=== PATIENT | female | born 1985 | race Caucasian/White ===

== ENCOUNTER → 2016-06-27 | Outpatient (CLI) | payer BC ==
[~2016-06-27] MED LIST: BUTA1CAP39 PO; IBP600T1 PO; OXYC-12 PO; PREN1TAB39 PO
--- OUTSIDE RECORDS SUMMARY | 2016-06-27 11:51 | XMS REPORT | Continuity of Care Document ---
Author Author [facility] Organization [facility] Address Unknown Phone Unavailable Allergies Active Description Code Type Severity Reaction Onset Reported/Identified Relationship to Patient Clinical Status Yes No Known Drug Allergies [id number] Drug Allergy Unknown N/ A 06/13/2008 Medications Problems Date Dx Coded Attending Type Code Diagnosis Diagnosed By 06/11/2010 Ot 649.53 09/08/2011 Ot 659.71 ABN DEL FET HT RT/RHYTHM,W OR W/O MENTIO 09/08/2011 Ot V06.1 [id number], COMBINED [ 09/08/2011 Ot V27.0 DELIVER-SINGLE LIVEBORN 09/29/2014 CALDERON HOWE OD Ot 368.40 09/29/2014 CALDERON HOWE OD Ot 473.9 05/30/2015 ISAIAH WALKER MD Ot F17.210 NICOTINE DEPENDENCE, CIGARETTES, UNCOMPL 05/30/2015 AARON STAPLES, ISAIAH Goel Ot G43.909 MIGRAINE, UNSP, NOT INTRACTABLE, WITHOUT 06/27/2016 CALDERON HOWE OD Ot 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 Visit Date/Time Discharge Status Pt. Type Provider Facility Loc./Unit Complaint [id number] 05/30/2015 21:33:00 2015 22:41:00 DIS Emergency ISAIAH WALKER MD [facility] ER MIGRAINE;NAUSEA [id number] 08/03/2014 14:52:00 2014 23:59:59 CLS Outpatient CALDERON HOWE OD [facility] RAD BITEMPORAL FIELD DEFECT/ PITUITARY TUMOR POSSIBILIT [id number] 12/07/2013 12:53:00 2013 23:59:59 CLS Outpatient [id number] 06/27/2016 11:49:00 ACT Outpatient MIGUEL ELLISON DO [facility] RAD FIRST TRIMESTER BLEEDING [id number] 09/06/2011 01:47:00 Document Registration [id number] 06/11/2010 12:53:00 Document Registration
--- NOTE | 2016-06-27 14:03 | Diagnostic Imaging Report ---
Transvaginal pelvic ultrasound. INDICATION: First trimester bleeding. FINDINGS: The uterus is 8 x 4.2 x 5.3 cm in size. The endometrial stripe is 4 mm in caliber. The ovaries are not seen, perhaps obscured by bowel gas. No discrete myometrial mass is noted. IMPRESSION: No intrauterine is seen. The adnexa are obscured. Differential considerations include early normal , failed or occult ectopic . Correlate with serial beta hCG levels and ultrasound exam. Dictated by: Dictated on workstation # [id number]
== END ==
LOC: RAD 11:49
PROVIDERS: ATTEND Obstetrics & Gynecology
DX: O20.8 Other hemorrhage in early pregnancy (principal)
CPT/HCPCS: 76817

== ENCOUNTER → 2016-07-07 | Outpatient (CLI) | payer BC | LOC: LAB 14:04 | PROVIDERS: ATTEND Obstetrics & Gynecology | DX: O20.9 Hemorrhage in early pregnancy, unspecified (principal) | CPT/HCPCS: 36415; 84702 ==

== ENCOUNTER → 2017-05-25 | Outpatient (CLI) | payer BC ==
--- NOTE | 2017-05-25 18:35 | Diagnostic Imaging Report ---
INDICATION: Size and dates. OB sonography is performed in the routine fashion with transabdominal views. 9 weeks 1 day sized intrauterine gestation is visualized, without cardiac activity. There is no overt subchorionic bleed. There is no free fluid. Gestational sac shows a normal ovoid contour. Left ovary appears unremarkable and contains color flow. The right ovary is not seen due to overlying bowel. IMPRESSION: 9 weeks 1 day sized intrauterine gestation without cardiac activity, compatible with demise. The results were called to the referring physician by the technologist at the time of the study. Dictated by: Dictated on workstation # [id number]
== END ==
LOC: RAD 14:15
PROVIDERS: ATTEND Family Medicine
DX: Z34.81 Encounter for supervision of other normal pregnancy, first trimester (principal); Z3A.09 9 weeks gestation of pregnancy
CPT/HCPCS: 76801

== ENCOUNTER 2019-01-12 03:14 | Inpatient (IN) | payer BC ==
[2019-01-12] VITALS (9 sets, daily range): BP systolic 100–124; BP diastolic 38–105
[~2019-01-12] VITALS: Ht 157.5 cm; Wt 57.4 kg
--- NOTE | 2019-01-12 03:25 | NUR ---
DARIEN PARK presented to unit via wheelchair from ED, accompanied by S.O, with c/o CONTRACTIONS,FLUID LEAKAGE. DARIEN PARK weighed, gowned, voided, and to bed. EFHM and TOCO applied, VS taken. DARIEN PARK oriented to bed controls, call light, TV, heat, and A/C controls.
[2019-01-12 03:54] LABS: CLARITY,URINE CLEAR; COLOR,URINE YELLOW; GLUCOSE, URINE (UA) NEGATIVE (NEGATIVE); KETONES,URINE 1+ (NEGATIVE); LEUKOCYTE ESTERASE ,URINE 2+ (NEGATIVE); NITRITE,URINE NEGATIVE (NEGATIVE); PH,URINE 6.5 (5-9); PROTEIN,URINE 2+ (NEGATIVE); UROBILINOGEN,URINE 8 MG/DL (NORMAL)
[2019-01-12 04:01] LABS: BACTERIA,URINE FEW /HPF; BILIRUBIN,URINE 2+ (NEGATIVE); RBC,URINE 0-2 /HPF; SQUAMOUS EPITHELIAL CELL,UR 0-2 /HPF; WBC,URINE 0-2 /HPF
[2019-01-12] MEDS ORDERED: TERBUTALINE INJ 1 MG/ML (BRETHINE) AMP ONE (04:05)
[2019-01-12] MEDS ORDERED: NS IV 1000 ML 1,000 ML ONE (04:09)
--- NOTE | 2019-01-12 04:11 | NUR ---
Pt advised on POC and terbutaline given per order.
[2019-01-12] MEDS ORDERED: NS IV 1000 ML 1,000 ML IV SCH (04:15)
[2019-01-12] MEDS ORDERED: TERBUTALINE INJ 1 MG/ML (BRETHINE) AMP SC ONE ×2 (04:15→05:45)
[2019-01-12] MEDS ORDERED: LACTATED RINGERS 1,000 ML IV PRN ×2 (05:39)
[2019-01-12] MEDS ORDERED: AMPICILLIN FOR IV USE 2,000 MG VIAL ONE (05:41)
[2019-01-12] MEDS ORDERED: AMPICILLIN FOR IV USE 2,000 MG in WATER (STERILE) FOR INJECTION 14.8 ML IV SCH (05:41)
[2019-01-12] MEDS ORDERED: WATER (STERILE) FOR INJECTION 20 ML ONE (05:42)
[2019-01-12] MEDS ORDERED: FAMOTIDINE 20MG/2ML IV (PEPCID) IV ONE (05:45)
[2019-01-12] MEDS ORDERED: CATHETER FLUSH 10 ML SYR IV PRN (05:45)
[2019-01-12] MEDS ORDERED: METOCLOPRAMIDE INJ 10 MG/2 ML (REGLAN) IV ONE (05:45)
[2019-01-12] MEDS ORDERED: CITRIC ACID/SOB CIT (BICITRA) 30 ML UDC PO ONE (05:45)
[2019-01-12 05:48] LABS: BASOPHILS % (AUTO) 0 % (0-10); EOSINOPHILS # (AUTO) 0.1 10^3/uL (0.0-0.3); EOSINOPHILS % (AUTO) 1 % (0-10); HEMATOCRIT 38 % (35-52); HEMOGLOBIN 12.8 G/DL (11.5-16.0); LYMPHOCYTES # (AUTO) 2.1 X 10^3 (1.0-4.0); LYMPHOCYTES % (AUTO) 11 % (12-44); MEAN CORPUSCULAR HEMOGLOBIN 31 PG (25-34); MEAN CORPUSCULAR HGB CONC 33 G/DL (32-36); MEAN CORPUSCULAR VOLUME 93 FL (80-99); MEAN PLATELET VOLUME 11.6 FL (7.4-10.4); MONOCYTES # (AUTO) 1.2 X 10^3 (0.0-1.0); MONOCYTES % (AUTO) 6 % (0-12); NEUTROPHILS # (AUTO) 15.7 X 10^3 (1.8-7.8); NEUTROPHILS % (AUTO) 82 % (42-75); PLATELET COUNT 359 10^3/uL (130-400); RED CELL DISTRIBUTION WIDTH 13.9 % (10.0-14.5); WHITE BLOOD COUNT 19.1 10^3/uL (4.3-11.0)
[2019-01-12] MEDS ORDERED: METOCLOPRAMIDE INJ 10 MG/2 ML (REGLAN) ONE (05:58)
[2019-01-12] MEDS ORDERED: FAMOTIDINE 20MG/2ML IV (PEPCID) ONE (05:58)
[2019-01-12] MEDS ORDERED: CITRIC ACID/SOB CIT (BICITRA) 30 ML UDC ONE (05:58)
[2019-01-12] MEDS ORDERED: ceFAZolin INJECTION 1,000 MG ONE (06:29)
[2019-01-12] MEDS ORDERED: ceFAZolin INJECTION 1,000 MG in WATER (STERILE) FOR INJECTION 10 ML IV ONE (06:30)
[2019-01-12] MEDS ORDERED: fentaNYL INJECTION 100 MCG/2 ML AMP ONE (06:32)
--- NOTE | 2019-01-12 06:37 | History & Physical-OB ---
OB - Chief Complaint & HPI Date/Time Date of Admission: Date of Admission: Jan 12, 2019 at 05:33 Chief Complaint/History OB-Reason for Admission/Chief: Onset of Labor (Previous section) Hx : 5 Hx Para: 2 Expected Date of Delivery: Feb 06, 2019 Gestational Age in Weeks: 36 Gestational Age in Days: 3 Other She is a with history of x 1 and CS x1. She had intercourse last night and then presented with painful contractions. On exam per RN she was 1 cm. Given a liter of fluid and 1 dose of terbutaline which decreased her contrac tions for a few minutes. Then RN checked her with Allergies and Home Medications Allergies Coded Allergies: No Known Drug Allergies (Verified , 06/13/08) Home Medications Butalb/Acetaminophen/Caffeine 1 Each Capsule, 1 EACH PO Q4H PRN for HEADACHE Prescribed by: ISAIAH WALKER on 05/30/15 2200 Ibuprofen 600 Mg Tab, 600 MG PO Q6H PRN, (Reported) Oxycodone Hcl/Acetaminophen 1 Each Tablet, 1-2 EACH PO Q 4-6H PRN, (Reported) Vits W-Ca,Fe,Fa(<1MG) 1 Each Tablet, 1 EACH PO DAILY, (Reported) OB - History Hx of Present Care: Yes Obstetrical History Hx : 5 Hx Para: 2 Delivery History Hx Blood Disorders: No Social History/Family History HIV/AIDS: No Recent Infectious Disease Expo: No Sexually Transmitted Disease: No Alcohol Use: Occasionally Uses Recreational Drug Use: Yes OB - Admission Exam Physical Exam Vitals: Vital Signs 01/12/19 03:35 Temp 35.8 Pulse 77 Resp 18 B/P (MAP) 124/69 (87) O2 Delivery Room Air Labs Laboratory Tests Test 01/12/19 03:30 01/12/19 04:18 Range/Units Urine Color YELLOW Urine Clarity CLEAR Urine pH 6.5 5-9 Urine Specific [place] 1.025 H 1.016-1.022 Urine Protein 2+ H NEGATIVE Urine Glucose (UA) NEGATIVE NEGATIVE Urine Ketones 1+ H NEGATIVE Urine Nitrite NEGATIVE NEGATIVE Urine Bilirubin 2+ H NEGATIVE Urine Urobilinogen 8 H NORMAL MG/DL Urine Leukocyte Esterase 2+ H NEGATIVE Urine RBC (Auto) 5+ H NEGATIVE Urine RBC 0-2 /HPF Urine WBC 0-2 /HPF Urine Squamous Epithelial Cells 0-2 /HPF Urine Crystals NONE /LPF Urine Bacteria FEW H /HPF Urine Casts NONE /LPF Urine Mucus SMALL H /LPF Urine Culture Indicated CULTURE PENDING White Blood Count 19.1 H 4.3-11.0 10^3/uL Red Blood Count 4.14 L 4.35-5.85 10^6/uL Hemoglobin 12.8 11.5-16.0 G/DL Hematocrit 38 35-52 % Mean Corpuscular Volume 93 80-99 FL Mean Corpuscular Hemoglobin 31 25-34 PG Mean Corpuscular Hemoglobin Concent 33 32-36 G/DL Red Cell Distribution Width 13.9 10.0-14.5 % Platelet Count 359 130-400 10^3/uL Mean Platelet Volume 11.6 H 7.4-10.4 FL Neutrophils (%) (Auto) 82 H 42-75 % Lymphocytes (%) (Auto) 11 L 12-44 % Monocytes (%) (Auto) 6 0-12 % Eosinophils (%) (Auto) 1 0-10 % Basophils (%) (Auto) 0 0-10 % Neutrophils # (Auto) 15.7 H 1.8-7.8 X 10^3 Lymphocytes # (Auto) 2.1 1.0-4.0 X 10^3 Monocytes # (Auto) 1.2 H 0.0-1.0 X 10^3 Eosinophils # (Auto) 0.1 0.0-0.3 10^3/uL Basophils # (Auto) 0.0 0.0-0.1 10^3/uL MIGUEL ELLISON DO Jan 12, 2019 06:37
[2019-01-12] MEDS ORDERED: OXYTOCIN/NORMAL SALINE 1,000 ML IV ONE (07:33)
[2019-01-12] MEDS ORDERED: ONDANSETRON 4 MG/2 ML (SDV) Z0FRAN IV PRN (07:45)
[2019-01-12] MEDS ORDERED: NALOXONE 0.4 MG/ML 1 ML (NARCAN) VIAL IV PRN (07:45)
[2019-01-12] MEDS ORDERED: diphenhydrAMINE 50 MG/ML INJ (BENADRYL) IV PRN (07:45)
[2019-01-12] MEDS ORDERED: BUPIVACAINE 0.5% 30 ML (SENSORCAINE) VIAL ONE (07:48)
[2019-01-12] MEDS ORDERED: PHENYLEPHRINE 100 MCG/ML 10 ML (ANESTHESIA) SYR ONE (07:48)
[2019-01-12] MEDS ORDERED: OXYTOCIN/NORMAL SALINE 500 ML IV SCH (08:05)
[2019-01-12] MEDS ORDERED: morphine INJ 4 MG/ML 1 ML (VIAL/SYRINGE) IVP PRN (08:15)
[2019-01-12] MEDS ORDERED: MEASLES,MUMPS,RUBELLA 1 EA INJ SC SCH (08:15)
[2019-01-12] MEDS ORDERED: TETANUS,DIPTH,PERTUSS P/F (BOOSTRIX) 0.5 ML VIAL IM SCH (08:15)
--- NOTE | 2019-01-12 08:21 | Cesarean Section Operative ---
Procedure Procedure Note Pre-operative Diagnosis: Christine Driscoll is a 33 /Para 5 / 2,Gestational Age 36 3/7 weeks, previous section, labor, GBS unknown Post-operative Diagnosis: same Procedure: Repeat low transverse section Physician: MIGUEL ELLISON Interior Surface Insulation Worker: Reece Lees MD; project assistant necessary to retract important neurovascular structures Estimated blood loss: 400 mL Disposition: stable Findings: Viable female infant, Apgars 4/8, weight 5#8 ounces, intact placenta, 3vc, normal appearing uterus, tubes, and ovaries. polyhydramnios (at least 4 Liters), unstable lie, delivered breech Indications:Christine Driscoll is a 33 /Para 5 / 2,Gestational Age 36 3/7 weeks, previous section, labor, GBS unknown Procedure Details: The patient was seen in pre-op and the procedure was discussed with the patient in full, including the risks, benefits, and alternatives. All questions were answered. The patient was taken to the operating room and a time out was performed, verifying patient and procedure. After spinal anesthesia was placed by our anesthesia colleagues, the patient was placed in the dorsal supine with leftward tilt for uterine displacement.~ Her abdomen was then prepped and draped in the typical sterile fashion. A Pfannenstiel skin incision was made using a scalpel and carried down through the underlying fascia. The fascia was incised in the midline and tented up using Maciej clamps. On both the inferior and superior fascia side the rectus muscle was dissected off bluntly and sharply using Orozco scissors. The peritoneum was identified and entered bluntly in the midline. This was then stretched laterally using manual strength. After entering the abdominal cavity and confirming lack of intraperitoneal adhesions, a large Cabrera retractor was placed and the lower uterine segment was visualized. A bladder flap was created with the use of Metzenbaum scissors.~ A scalpel was utilized to make a low transverse uterine incision. Amniotomy was performed with an Allis clamp with return of clear fluid. The infant's head was grasped and brought to the level of the incision. Fundal pressure was applied and was delivered without difficulty. Mouth and nares were suctioned with bulb suction. After the umbilical cord was clamped and cut, the was handed off to the pediatric staff. A sample of cord blood was then obtained. The placenta was delivered intact via uterine massage. The uterus was exteriorized and cleared of all clots and debris. The uterine incision was closed using 0 Vicryl in a running locked fashion. A second imbricated layer was placed using 0 Vicryl in a running fashion as well. The uterus was flexed forward and the posterior rectouterine space was inspected and cleared of all clots and debris. Again the hysterotomy site was examined and hemostasis was observed. The bilateral tubes and ovaries appeared normal. The uterus was placed back into the abdominal cavity and abdominal gutters were cleared of all clots and debris. A final check of the uterine incision showed it to be hemostatic. The peritoneum was closed using 3-0 Vicryl in a running fashion. The fascia was closed with 0 Vicryl in a running fashion. The subcutaneous space was hemostatic, and irrigated. The subcutaneous space was closed with 3-0 Vicryl in several single interrupted stitches. The skin was then closed using 4-0 Monocryl in a running subcuticular fashion. The skin edges were reapproximated together and were hemostatic. A pressure dressing was applied. All sponge, lap and needle counts were correct at the end of the procedure per nursing. Vitals - Labs Vital Signs - I&O Vital Signs Date Time Temp Pulse Resp B/P (MAP) Pulse Ox O2 Delivery O2 Flow Rate FiO2 01/12/19 06:20 101 18 111/56 (74) Room Air 01/12/19 03:35 35.8 77 18 124/69 (87) Room Air I & O 01/12/19 07:00 Intake Total 2014.8 ml Balance 2014.8 ml Labs Laboratory Tests 01/12/19 03:30: Urine Color YELLOW, Urine Clarity CLEAR, Urine pH 6.5, Urine Specific [place] 1.025H, Urine Protein 2+H, Urine Glucose (UA) NEGATIVE, Urine Ketones 1+H, Urine Nitrite NEGATIVE, Urine Bilirubin 2+H, Urine Urobilinogen 8H, Urine Leukocyte Esterase 2+H, Urine RBC (Auto) 5+H, Urine RBC 0-2, Urine WBC 0-2, Urine Squamous Epithelial Cells 0-2, Urine Crystals NONE, Urine Bacteria FEWH, Urine Casts NONE, Urine Mucus SMALLH, Urine Culture Indicated CULTURE PENDING 01/12/19 04:18: White Blood Count 19.1H, Red Blood Count 4.14L, Hemoglobin 12.8, Hematocrit 38, Mean Corpuscular Volume 93, Mean Corpuscular Hemoglobin 31, Mean Corpuscular Hemoglobin Concent 33, Red Cell Distribution Width 13.9, Platelet Count 359, Mean Platelet Volume 11.6H, Neutrophils (%) (Auto) 82H, Lymphocytes (%) (Auto) 11L, Monocytes (%) (Auto) 6, Eosinophils (%) (Auto) 1, Basophils (%) (Auto) 0, Neutrophils # (Auto) 15.7H, Lymphocytes # (Auto) 2.1, Monocytes # (Auto) 1.2H, Eosinophils # (Auto) 0.1, Basophils # (Auto) 0.0 MIGUEL ELLISON DO Jan 12, 2019 08:21
--- NOTE | 2019-01-12 08:57 | NUR ---
pt transferred to room 313 via bed with nursing staff @ side. pt alert, talking. familiarized with room surroundings. call light within reach.
[2019-01-12] MEDS: CATHETER FLUSH 10 ML SYR IV SCH ×2 (09:12→16:07)
[2019-01-12] MEDS: KETOROLAC 30 MG/ML VIAL IV SCH ×3 (09:12→21:45)
[2019-01-12] MEDS: DOCUSATE SODIUM 100 MG (COLACE) CAP PO SCH ×2 (13:09→21:45)
[2019-01-12] MEDS: METOCLOPRAMIDE 10 MG (REGLAN) TAB PO SCH ×2 (13:10→19:37)
[2019-01-12] MEDS: ACETAMINOPHEN 500 MG TAB (TYLENOL) PO SCH (13:10)
--- NOTE | 2019-01-12 13:15 | NUR ---
caceres catheter dc'd per Dr's orders. 300cc dark urine noted in chamber. gen-care offered. v-pad and panties applied.
[2019-01-13] MEDS: METOCLOPRAMIDE 10 MG (REGLAN) TAB PO SCH ×2 (00:53→06:11)
[2019-01-13] MEDS: ACETAMINOPHEN 500 MG TAB (TYLENOL) PO SCH ×2 (00:53→10:20)
[2019-01-13 02:00] VITALS: BP 114/55
[2019-01-13] MEDS: KETOROLAC 30 MG/ML VIAL IV SCH (04:17)
[2019-01-13] MEDS ORDERED: IBUPROFEN 800 MG (MOTRIN) TAB PO ONE (04:21)
[2019-01-13] MEDS ORDERED: IBUPROFEN 600 MG (MOTRIN) TAB PO ONE (04:23)
[2019-01-13] MEDS: IBUPROFEN 600 MG (MOTRIN) TAB PO SCH ×2 (04:25→10:21)
[2019-01-13] MEDS ORDERED: MILK OF MAGNESIA 400 MG/5 ML 30 ML UDC PO PRN (05:00)
[2019-01-13 06:00] VITALS: BP 109/52
[2019-01-13 06:53] LABS: BASOPHILS % (AUTO) 0 % (0-10); EOSINOPHILS # (AUTO) 0.1 10^3/uL (0.0-0.3); EOSINOPHILS % (AUTO) 1 % (0-10); HEMATOCRIT 34 % (35-52); HEMOGLOBIN 11.3 G/DL (11.5-16.0); LYMPHOCYTES # (AUTO) 1.2 X 10^3 (1.0-4.0); LYMPHOCYTES % (AUTO) 7 % (12-44); MEAN CORPUSCULAR HEMOGLOBIN 31 PG (25-34); MEAN CORPUSCULAR HGB CONC 33 G/DL (32-36); MEAN CORPUSCULAR VOLUME 93 FL (80-99); MEAN PLATELET VOLUME 10.9 FL (7.4-10.4); MONOCYTES # (AUTO) 0.8 X 10^3 (0.0-1.0); MONOCYTES % (AUTO) 5 % (0-12); NEUTROPHILS # (AUTO) 14.4 X 10^3 (1.8-7.8); NEUTROPHILS % (AUTO) 87 % (42-75); PLATELET COUNT 315 10^3/uL (130-400); RED CELL DISTRIBUTION WIDTH 14.1 % (10.0-14.5); WHITE BLOOD COUNT 16.6 10^3/uL (4.3-11.0)
[2019-01-13 08:00] VITALS: BP 100/64
--- NOTE | 2019-01-13 08:00 | NUR ---
PT HAS AMBULATED DOWNSTAIRS FREQUENTLY WITH S.O. VSS. DOING WELL. ANXIOUS TO GO SEE INFANT IN JOIN.
--- NOTE | 2019-01-13 08:47 | Anesthesia-Regional Post-Op ---
Regional Patient Condition Mental Status: Alert, Oriented x3 Circulation: Same as Pre-Op Headache: Absent Sensation: Full Recovery Motor Block: Absent Post Op Complications Complications None Follow Up Care/Instructions Patient Instructions None needed. Anesthesia/Patient Condition Patient is doing well, no complaints, stable vital signs, no apparent adverse anesthesia problems. No complications reported per nursing. GAY QUISPE CRNA Jan 13, 2019 08:47
[2019-01-13] MEDS ORDERED: ACET-77 PO (09:34)
[2019-01-13] MEDS ORDERED: DOCU100C37 PO (09:34)
[2019-01-13] MEDS ORDERED: IBUP-844 PO (09:34)
--- NOTE | 2019-01-13 09:38 | Short Stay Summary ---
Discharge Summary Hospital Course Was the Problem List Reviewed?: Yes Final Diagnosis: Previous section; labor; 36 week Hospital Course Date of Admission: Jan 12, 2019 at 05:33 Admission Diagnosis : [facility] [place] of [facility]charge: 01/13/19 Discharge Diagnosis: [ ] Hospital Course: [ ] Labs and Pending Lab Test: Laboratory Tests 01/13/19 06:32: White Blood Count 16.6H, Red Blood Count 3.66L, Hemoglobin 11.3L, Hematocrit 34L , Mean Corpuscular Volume 93, Mean Corpuscular Hemoglobin 31, Mean Corpuscular Hemoglobin Concent 33, Red Cell Distribution Width 14.1, Platelet Count 315, Mean Platelet Volume 10.9H, Neutrophils (%) (Auto) 87H, Lymphocytes (%) (Auto) 7L, Monocytes (%) (Auto) 5, Eosinophils (%) (Auto) 1, Basophils (%) (Auto) 0, Neutrophils # (Auto) 14.4H, Lymphocytes # (Auto) 1.2, Monocytes # (Auto) 0.8, Eosinophils # (Auto) 0.1, Basophils # (Auto) 0.0 Home Meds Active Docusate Sodium 100 Mg Capsule 100 Mg PO BID Acetaminophen 500 Mg Tablet 1,000 Mg PO Q8HR Ibu (Ibuprofen) 600 Mg Tablet 600 Mg PO Q6HR Fioricet 50-300-40 mg Capsule (Butalb/Acetaminophen/Caffeine) 1 Each Capsule 1 Each PO Q4H PRN Reported Percocet 5-325 Mg Tablet (Oxycodone Hcl/Acetaminophen) 1 Each Tablet 1-2 Each PO Q 4-6H PRN Motrin (Ibuprofen) 600 Mg Tab 600 Mg PO Q6H PRN ( Vits W-Ca,Fe,Fa(<1MG)) 1 Each Tablet 1 Each PO DAILY Discharge Instructions Discharge Diet: No Restrictions Activity as Tolerated: No (no liefting over 25 lbs) Pneumonia Vaccine Order Indica: Yes Discharge Physical Examination General Appearance: Alert Respiratory: Clear to Auscultation, Normal Air Movement Cardiovascular: Regular Rate, Normal S1 Abdominal: Normal Bowel Sounds, Other (Inc CDI) Psych/Mental Status: Mental Status NL Allergies: Coded Allergies: No Known Drug Allergies (Verified , 06/13/08) Discharge Summary Date of Admission Jan 12, 2019 at 05:33 Date of Discharge 01/13/19 Discharge Time: 09:35 Consults/Procedures Procedures Repeat section Clinical Quality Measures DVT/VTE Risk/Contraindication: VTE Addressed: Yes VTE Present on Admission: No Risk Factor Score Per Nursin RFS Level Per Nursing on Admit: 2=Moderate MIGUEL ELLISON DO Jan 13, 2019 09:38
--- NOTE | 2019-01-13 10:00 | NUR ---
TALKING WITH THE DR. SOY RICHARDS WHEN ENTERED. ROOM. S.O. AT BEDSIDE.
[2019-01-13] MEDS: DOCUSATE SODIUM 100 MG (COLACE) CAP PO SCH (10:21)
--- NOTE | 2019-01-13 11:00 | NUR ---
SHOWERED WITHOUT PROBLEMS. WAITING TO SEE DR. ELLISON.
--- NOTE | 2019-01-13 12:30 | NUR ---
PT DECLINED FLU VACCINE. PT ALREADY HAD TDAP VACCINE.
[2019-01-13 13:00] VITALS: BP 101/59
--- NOTE | 2019-01-13 13:30 | NUR ---
PREPARING FOR DISCHARGE. TO BE TRANSFERRED TO .C. TOMORROW PER MOM.
[2019-01-13 14:40] VITALS: BP 101/59
--- NOTE | 2019-01-13 14:40 | NUR ---
DISCHARGE INSTRUCTIONS REVIEWED WITH COPY TO PT. STATES UNDERSTANDING OF ALL INSTRUCTIONS AND NEED TO F/U SCHEDULED AND NEEDED.
--- NOTE | 2019-01-13 14:45 | NUR ---
DISMISSED AMB FROM [facility] IN STABLE CONDITION TO FAMILY CAR ACC BY AGNES LIVINGSTON. S.O. IN CAR WAITING FOR PT.
== END 2019-01-13 14:45 | disposition home or self-care (01) | DRG 788 ==
LOC: WSo 03:14 → LDRP 03:16 → WSo 05:32 → LDRP 05:33
PROVIDERS: ADMIT Obstetrics & Gynecology; ATTEND Obstetrics & Gynecology
PROC: 10D00Z1 Extraction of Products of Conception, Low, Open Approach (ICD-10-PCS; principal; 2019-01-12 07:09)
DX: O60.14X0 Preterm labor third trimester with preterm delivery third trimester, not applicable or unspecified (principal); O34.211 Maternal care for low transverse scar from previous cesarean delivery; O40.3XX0 Polyhydramnios, third trimester, not applicable or unspecified; O32.0XX0 Maternal care for unstable lie, not applicable or unspecified; O32.1XX0 Maternal care for breech presentation, not applicable or unspecified; Z37.0 Single live birth; Z3A.36 36 weeks gestation of pregnancy
CPT/HCPCS: 36415; 81000; 85025; 86850; 86900; 86901; 87088; 99212

== ENCOUNTER → 2019-01-25 | Outpatient (CLI) | payer BC ==
[~2019-01-25] MED LIST changes: +ACET-77 PO; +DOCU100C37 PO; +IBUP-844 PO
== END | disposition home or self-care (01) ==
LOC: PREOP 05:39
PROVIDERS: ATTEND Obstetrics & Gynecology
DX: Z01.818 Encounter for other preprocedural examination (principal)

== ENCOUNTER 2020-07-09 09:39 | Emergency (ER) | payer BC ==
[~2020-07-09] VITALS: Ht 157.5 cm; Wt 44.5 kg
[~2020-07-09 09:39] MED LIST changes: -ACET-77 PO; +ACET-78 PO
[2020-07-09 09:54] VITALS: BP 121/88
[2020-07-09] MEDS ORDERED: IBUPROFEN 600 MG (MOTRIN) TAB PO ONE (10:30)
[2020-07-09] MEDS ORDERED: AMOX500C2 PO (10:30)
--- NOTE | 2020-07-09 10:30 | ED EENT ---
History of Present Illness General Chief Complaint: Dental Problems/Pain Stated Complaint: DENTAL PAIN/SWELLING Nursing Triage Note: PT AMB TO TRIAGE WITH COMPLAINT OF LEFT SIDED FACIAL SWELLING AND DENTAL PAIN. STATES SYMPTOMS STARTED THURSDAY. Source: patient Exam Limitations: no limitations History of Present Illness Date Seen by Provider: Jul 09, 2020 Time Seen by Provider: 10:25 Initial Comments Patient is a 35-year-old female who presents to the emergency department today with a chief complaint of left-sided facial swelling and dental pain. Onset of symptoms was on Thursday. The swelling started on Thursday. Patient states that she has been seen recently at [facility], had some teeth removed and was placed on antibiotics. Patient states that she had an abscess at that time. This is been about 2 months ago. Patient states that she started noting the symptoms again as stated on Thursday of this last week 2 days ago. Patient complains of a slightly loose tooth. She denies any history of cardiac issues. She does smoke cigarettes. No reported fevers but she has had some chills. All other review of systems reviewed and negative except as stated. Timing/Duration: gradual Prearrival Treatment: no prearrival treatment Associated Symptoms: denies symptoms Allergies and Home Medications Allergies Coded Allergies: No Known Drug Allergies (Verified , 06/13/08) Home Medications Acetaminophen 500 Mg Tablet, 1,000 MG PO Q8HR Prescribed by: MIGUEL ELLISON on 01/13/19933 Butalb/Acetaminophen/Caffeine 1 Each Capsule, 1 EACH PO Q4H PRN for HEADACHE Prescribed by: ISAIAH WALKER on 05/30/150 Docusate Sodium 100 Mg Capsule, 100 MG PO BID Prescribed by: MIGUEL ELLISON on 01/13/19933 Ibuprofen 600 Mg Tablet, 600 MG PO Q6HR Prescribed by: MIGUEL ELLISON on 01/13/19933 Vits W-Ca,Fe,Fa(<1MG) 1 Each Tablet, 1 EACH PO DAILY, (Reported) Patient Home Medication List Home Medication List Reviewed: Yes Review of Systems Review of Systems Constitutional: see HPI Eyes: No Symptoms Reported Ears: No Symptoms Reported Nose: no symptoms reported Mouth: loose teeth (Left upper incisor), other (Abscess developing on the buccal side of the gingiva, just apical to the left upper incisor) Respiratory: no symptoms reported Cardiovascular: no symptoms reported Gastrointestinal: no symptoms reported All Other Systems Reviewed Negative Unless Noted: Yes Past Obsgyty-Fbaens-Fbrjjx Hx Patient Social History Alcohol Use: Occasionally Uses Drug of Choice: marijuana Smoking Status: Current Everyday Smoker Type Used: Cigarettes Recent Infectious Disease Expo: No Recent Hopitalizations: No Immunizations Up To Date Tetanus Booster (TDap): Unknown PED Vaccines UTD: Yes Seasonal Allergies Seasonal Allergies: No Past Medical History Surgeries: Yes Respiratory: No Cardiac: No Neurological: No Reproductive Disorders: No Female Reproductive Disorders: Denies Sexually Transmitted Disease: No HIV/AIDS: No Genitourinary: No Gastrointestinal: No Musculoskeletal: No Endocrine: No HEENT: No Cancer: No Psychosocial: No Integumentary: No Blood Disorders: No Family Medical History Patient reports no known family medical history. Physical Exam Vital Signs Vital Signs - First Documented 07/09/20 09:54 Temp 36.8 Pulse 88 Resp 17 B/P (MAP) 121/88 (99) Pulse Ox 99 O2 Delivery Room Air Height, Weight, BMI Height: 5'2" Weight: 92lbs. oz. 41.352177sw; 17.00 BMI Method: General Appearance: WD/WN, no apparent distress Eyes: bilateral eye normal inspection, bilateral eye PERRL, bilateral eye EOMI Nose: normal inspection Mouth/Throat: other (Multiple teeth have been removed on the right side upper and lower. Patient has an ulcer forming at the apex of the left upper incisor. This tooth is also loose.) Neck: full range of motion Cardiovascular: regular rate, rhythm, no murmur Respiratory: lungs clear, normal breath sounds, no respiratory distress, no accessory muscle use Neurologic/Psychiatric: alert, normal mood/affect, oriented x 3 Skin: normal color, warm/dry Progress/Results/Core Measures Results/Orders Vital Signs/I&O 07/09/20 09:54 Temp 36.8 Pulse 88 Resp 17 B/P (MAP) 121/88 (99) Pulse Ox 99 O2 Delivery Room Air Blood Pressure Mean: 99 Departure Impression Primary Impression: Pain, dental Additional Impression: Gingival ulcer Disposition: 01 HOME, SELF-CARE Condition: Stable Departure-Patient Inst. Decision time for Depature: 10:28 Referrals: [facility] (PCP/Family) Primary Care Physician Patient Instructions: Dental Pain Add. Discharge Instructions: Please try and quit smoking, this will help your teeth. Take the antibiotics 3 times a day for the next 10 days. Warm salt water gargles and rinses may also help the inflammation in your mouth. Take [id number] ibuprofen, 3 tablets which is 600 mg 3 times a day with food for pain. Return to the emergency room for any increased swelling, pain, fever or other emergent concerning symptoms. Scripts Amoxicillin (Amoxicillin) 500 Mg Capsule 500 MG PO TID, #30 CAP 0 Refills Prov: JEFF VEGA MD 07/09/20 JEFF VEGA MD Jul 09, 2020 10:30
== END 2020-07-09 10:49 | disposition home or self-care (01) ==
LOC: EDUNIT# 09:39 → ER 09:43
DX: K06.8 Other specified disorders of gingiva and edentulous alveolar ridge (principal); F17.210 Nicotine dependence, cigarettes, uncomplicated
CPT/HCPCS: 99283